=== PATIENT | female | born 1925 | race Caucasian/White ===

== ENCOUNTER 2016-12-28 18:34 | Inpatient (IN) | payer MEDICARE, BC ==
[~2016-12-28] VITALS: Ht 160 cm; Wt 86.0 kg
--- NOTE | 2017-01-01 16:46 | ER ---
ADMIT: 12/28/2016 RM/LOC: 502 [facility] MR#: [id number] [address] [address] [place] [address] Emergency Room Report SEX: F AGE: 89 : 1925 DATE: 12/28/2016 HISTORY OF PRESENT ILLNESS: The patient is an 89-year-old female, who presents to the emergency room after she sustained a fall at [facility]. She was trying to walk through the door in her house when she tripped and fell straight down on her knee. She is negative for loss of consciousness, but she is anticoagulated for AFib. She had right knee and hip pain, severity of pain 6/10. PAST MEDICAL HISTORY: Heart disease, left hip replacement [address] Rayo. She is AFib. IMMUNIZATIONS: Up-to-date. MEDICATIONS: Are as follows: 1. Aspirin. 2. Enalapril. 3. Metoprolol. 4. Warfarin. ALLERGIES: NO DRUG ALLERGIES. SOCIAL HISTORY: Lives at [facility]. PHYSICAL EXAMINATION: VITAL SIGNS: Blood pressure 161/82, with a heart rate of 65, respirations 11, temperature 98.6, O2 saturations 93%. GENERAL: She is mildly anxious. HEENT: On examination, she had no indication of trauma to the head or face. Eyes are PERRLA. ENT within normal limits. NECK: Supple. RESPIRATIONS: Chest nontender. ABDOMEN: Nontender. NEURO: Oriented x4. Motor and sensation intact. Mood and affect appropriate. SKIN: Good color and turgor. EXTREMITIES: Externally rotated right leg and shortened. LABORATORY DATA AND IMAGING: X-ray shows right femoral neck fracture read by Dr. Mitchell and verified by Radiology, Dr. Zurita. CBC; 10.6 white count. Chemistry; BUN is 32, glucose 117, creatinine is 1.9, GFR is 23. Her EKG ADMIT: 12/28/2016 RM/LOC: 502 [facility] MR#: [id number] [address] [address] [place] [address] Emergency Room Report SEX: F AGE: 89 : 1925 shows inferior Q-waves and incomplete left bundle-branch block compared to prior a similar read, has not changed since 2013. Dr. Gauthier was contacted at 2030 hours for orders and Dr. Rayo was contacted for consultation. EMERGENCY DEPARTMENT COURSE: She has received Zofran 4 mg ODT. She has a line IV. Given morphine 4 mg IM prior to her x-ray, which after she came back, she was in a lot of pain, so we gave her Dilaudid 0.5 mg IV to repeat every 30 minutes. We did have to put her on 2 L of oxygen as a result of the Dilaudid given. Her saturations went down to 85%-87%. She is more comfortable now, awaiting room placement. CLINICAL IMPRESSION: Right femoral neck fracture secondary to fall. ROLF Morales / Filiberto Mitchell MD / modl JOB #: [id number] CC: Rodolfo Gauthier MD, Attending Physician Rodolfo Gauthier MD, Family Physician
--- NOTE | 2017-01-02 19:22 | HP ---
ADMIT: 12/28/2016 RM/LOC: 502 [facility] MR#: [id number] [address] [address] [place] [address] History and Physical SEX: F AGE: 89 : 1925 DATE OF SERVICE: CHIEF COMPLAINT: Right hip pain. CLINICAL HISTORY: The patient is an 89-year-old white female, who presented to the emergency room on the evening of 12/28/2016, complaining of right hip pain. The patient fell at her daughter's home when she tripped going over the threshold of a door. The patient normally is a resident at [facility]. She tripped and fell, landing on her right hip, having immediate onset of pain in her hip. She was subsequently unable to bear weight and ambulate and for this reason, her family transported her to the emergency room where she was evaluated and x-ray showed an intertrochanteric fracture of her right hip. She had an obvious hip fracture with shortening and external rotation of her right lower extremity noted with severe pain with any movement of her right lower extremity. The patient is noted to have a history of previous left hip fracture in November of 2013 when she suffered a similar injury to her left hip when she fell while living in her own home in [place] at that time. The patient has been living at [facility] [place] since she recovered from that previous hip fracture in November 2013. She is admitted at this time with an acute right hip fracture with plans for orthopedic consultation. PAST MEDICAL HISTORY: Previous hospitalization, she was last hospitalized here on 11/22/2013, with a left hip fracture. She has had no other recent hospitalizations. Her medical illnesses are noted to include SA node dysfunction with paroxysmal atrial fibrillation, sinus bradycardia as a portion of her SA node dysfunction, hypertension, and aortic insufficiency/valvular heart disease. Do note that she is on long-standing Coumadin anticoagulation for her paroxysmal atrial fibrillation. PREVIOUS SURGERIES: Include open reduction and internal fixation of her left hip fracture. The patient had a bipolar prosthesis placed for her left hip fracture in November 2013. ALLERGIES: NO KNOWN ALLERGIES. CURRENT MEDICATIONS: Include: 1. Baby aspirin 81 mg daily. 2. Metoprolol 25 mg b.i.d. 3. Enalapril 10 mg b.i.d. 4. Coumadin 5 mg on Thursday, Thursday, , and Thursday and 2.5 mg on Thursday, Thursday, and Thursday. She is on no other medications. SOCIAL HISTORY: The patient lived in [place] until her fall in 2013. For the past 3 years, she has been living at [facility] [place]. She chose to remain in [place] because 2 of her daughters live here in [place] and are support system for her here in this area. The patient is a lifelong nonsmoker. She does not consume alcoholic beverages. She has been able to live in the independent living portion of [facility] [place] for the last 2 years. ADMIT: 12/28/2016 RM/LOC: 502 [facility] MR#: [id number] [address] [place] [id number] [place] [address] History and Physical SEX: F AGE: 89 : 1925 FAMILY HISTORY: Negative with no history of significant family-related health conditions. REVIEW OF SYSTEMS: CONSTITUTIONAL: She has been feeling well. No recent acute illnesses. No fever. No chills. No weight loss. No night sweats. HEENT: No new eye, ear, nose, or throat complaints. Does have some mild hearing impairment. PULMONARY: No shortness of breath. No cough. No chest congestion. CARDIAC: No recent chest pain, palpitations, or tachycardia. No lightheadedness, no dizziness, no syncope, no orthopnea or PND. GASTROINTESTINAL: No nausea, no vomiting. No diarrhea. No change in bowel habitus. No blood in the stools. GENITOURINARY: No voiding symptoms. No flank pain or dysuria. No blood in the urine. MUSCULOSKELETAL: Some mild generalized arthritic discomfort. Left hip is done well since her previous left hip fracture. NEUROLOGIC: No focal symptoms. Cognitively she is well preserved. No history of strokes, seizures, TIAs, or unusual headaches. ENDOCRINE: No history of diabetes or thyroid problems. HEMATOLOGIC: No history of significant anemia or clotting disorders. She is on Coumadin anticoagulation. PHYSICAL EXAMINATION: VITAL SIGNS: Her temp is 97.1, pulse is 79, respirations are 16, blood pressure 152/59, and O2 saturation 98%, and current weight 189 pounds. GENERAL: The patient is a very pleasant 89-year-old female, who is in moderate distress due to her hip pain at this time, complaining of severe pain in her right hip. She is alert and oriented. HEENT: Reveals her ears to be clear. Pupils are equal reactive. Sclerae nonicteric. Conjunctivae noninflamed. Oral mucous membranes are moist. No oral lesions. Gag reflex is intact. NECK: Supple. Thyroid not enlarged. No cervical lymphadenopathy. No carotid bruits. LUNGS: At this time are noted to be clear. A little diminished in the bases. No wheezes or rales. HEART: Noted to have a regular rhythm at this time. She has a soft systolic murmur at the upper sternal border. No neck vein distention. No carotid bruits. ABDOMEN: Soft, nontender. No masses. No organomegaly. Bowel sounds normoactive. EXTREMITIES: The patient has marked pain with any movement of her right lower extremity. She has shortening and external rotation of the right leg. Marked pain in the right groin and over the right hip. Left lower extremity is unremarkable. She has a trace of pedal edema. No calf tenderness. INTEGUMENT: No rashes or worrisome skin lesions noted. NEUROLOGIC: No focal deficit. The patient unable to stand, unable to assess balance or gait at this time due to her severe hip pain, but I see no focal neurologic deficits. Cognitively she is well preserved. ADMIT: 12/28/2016 RM/LOC: 502 [facility] MR#: [id number] [address] [address] [place] [address] History and Physical SEX: F AGE: 89 : 1925 ASSESSMENT AT THE TIME OF ADMISSION: 1. Acute right femoral neck fracture/fracture of the right hip. Fall at her daughter's home on 12/28/2016. 2. Osteoporosis. 3. Valvular heart disease with aortic insufficiency. 4. SA node dysfunction with paroxysmal atrial fibrillation. 5. Hypertension. 6. Ongoing Coumadin anticoagulation. PLAN: Plan is to admit the patient. Pre-admission labs were reviewed. Do note that her white count is normal. Her creatinine is elevated at 1.9 suggesting some degree of age-related chronic kidney disease. Her EKG does show normal sinus rhythm with left bundle branch block and left anterior fascicular block, unchanged from previous EKGs. All preop lab, EKGs, and x-rays were reviewed. I see no medical contraindications to her planned orthopedic surgery. Dr. Rayo has been consulted and plans to take her to the OR later in the day of 12/29/2016. Rodolfo Gauthier MD/ edison JOB #: [id number] CC: Rodolfo Gauthier, Attending Physician Rodolfo Gauthier, Family Physician
--- NOTE | 2017-01-16 07:45 | OR ---
ADMIT: 12/28/2016 RM/LOC: 502 [facility] MR#: [id number] [address] [address] [place] [address] Operative/Delivery Room Report SEX: F AGE: 89 : 1925 SURGERY DATE: 12/29/2016 SURGEON: Jonathan Rayo MD PREOPERATIVE DIAGNOSES: 1. Right displaced femoral neck fracture. 2. Morbid obesity. POSTOPERATIVE DIAGNOSES: 1. Right displaced femoral neck fracture. 2. Morbid obesity. PROCEDURE: Right bipolar hemiarthroplasty. ELECTRONIC ASSEMBLY: ROLF Tan COMPLICATIONS: None. BLOOD LOSS: 200 mL. COMPONENTS: 1. A 5 basic Temple press-fit stem. 2. A 1.5 x 28 mm head. 3. A 46 mm bipolar component. DESCRIPTION OF THE PROCEDURE: The patient was taken to the operating room, received a general anesthetic, placed in lateral decubitus position. The right hip was prepped in standard fashion. A posterior was approach performed. Dissection was carried through the subcutaneous tissue. She is very obese. We carried it down to IT band, split the IT band into the gluteus eduar. At that point, we identified the piriformis tendon. We released the piriformis tendon and capsule and one capsular flap. We were then able to dislocate the hip. We freshened up the femoral neck fracture with an oscillating saw, removed the femoral head from the acetabulum, it measured 46 mm. At that point, we opened up the piriformis fossa with a reamer, reamed up to a size 2 to 3 then we sequentially broached up to a size 5. The 5 had actually had a very good press fit, and we elected to use a press-fit ADMIT: 12/28/2016 RM/LOC: 502 [facility] MR#: [id number] [address] [address] [place] [address] Operative/Delivery Room Report SEX: F AGE: 89 : 1925 prosthesis. We cleaned off the femoral neck with calcar party planner, reduced the hip with a 1.5 x 28 mm femoral head with a 46 mm bipolar component. At that point, we had good soft tissue tension, good leg length, no instability. We then dislocated the hip, removed all trial components, impacted the size 5 basic Temple stem down the femoral canal, impacted a +1.5 x 28 mm head, put on a 46 mm bipolar component, reduced the hip, it was again found to be stable. We irrigated out the wounds thoroughly, repaired the deep capsular tissue with #5 Tycron suture, closed an interrupted 0 Vicryl, closed the tensor fascia with 1 #5 suture followed by interrupted and running 0 Vicryl suture, closed the deep fat with 0 Vicryl and a 2-0 Vicryl, closed subcu with a 2-0 Vicryl, placed ellen in the skin, applied sterile dressings. She was taken to recovery room in stable condition with no complications. Jonathan Rayo MD/ edison JOB #: [id number] CC: Rodolfo Gauthier, Attending Physician Rodolfo Gauthier, Family Physician
--- NOTE | 2017-01-16 07:45 | CO ---
ADMIT: 12/28/2016 RM/LOC: 502 [facility] MR#: [id number] [address] [address] [place] [address] Consultation Report SEX: F AGE: 89 : 1925 Corrected: 12/30/2016 0652 njv DATE OF CONSULTATION: 12/29/2016 ATTENDING PHYSICIAN: Rodolfo Gauthier CONSULTING PHYSICIAN: Jonathan Rayo MD CHIEF COMPLAINT: Right hip pain. HISTORY OF PRESENT ILLNESS: The patient was at her daughter's home yesterday. She was going down the steps into the garage accompanied by her daughter when she fell down on her right side from. Her daughter was there and witnessed and described that she had immediate pain and was unable to stand up. Her daughter then drove her to the ER where she was evaluated for right hip and knee pain, and subsequently found a right femoral neck fracture. ALLERGIES: NO KNOWN DRUG ALLERGIES. MEDICATIONS: Please see the nurse's MAR. PAST MEDICAL HISTORY: Significant for atrial fibrillation and hypertension. SOCIAL HISTORY: The patient lives at [facility] by herself. PAST SURGICAL HISTORY: Significant for a left bipolar hemiarthroplasty, hysterectomy, and cholecystectomy. FAMILY HISTORY: Non-pertinent. REVIEW OF SYSTEMS: A comprehensive review of systems was reviewed and negative except what is noted in HPI. PHYSICAL EXAMINATION: GENERAL: This is a well-appearing elderly female, who is lying slightly uncomfortably on the hospital bed. MUSCULOSKELETAL: Right lower extremity shows no signs of bruising or skin abnormalities. She does have severe pain to palpation of the right hip and groin region all the way down to her mid thigh, however, there is no pain to palpation in her right knee or lower leg. She has shortened and externally rotated right lower extremity, normal sensation and movement of her toes, however, range of motion of her right lower extremity was not able to be assessed due to extreme pain with movement. NEUROVASCULAR: Status is intact. IMAGING: X-ray show a Garden type 3 right femoral neck fracture. ASSESSMENT: Right femoral neck fracture. ADMIT: 12/28/2016 RM/LOC: 502 [facility] MR#: [id number] [address] [address] [place] [address] Consultation Report SEX: F AGE: 89 : 1925 PLAN: At this point, I discussed the risks, benefits, and alternatives to a right bipolar hemiarthroplasty and the patient elected to proceed. She is taking warfarin for atrial fibrillation, which she took yesterday, but did not take today, her INR this morning was 1.7. I discussed with the patient. Her daughter said that the family practice doctor was planning on giving something to decrease the INR. If this is the case, we will recheck an INR and if it is decreased, Dr. Rayo will perform a right bipolar hemiarthroplasty this afternoon at around 1600 hours. The patient's daughter signed the consent form. The right hip was marked, and questions and concerns were answered appropriately. ROLF Monterroso / Jonathan Rayo MD / edison JOB #: [id number] CC: Rodolfo Gauthier, Attending Physician Rodolfo Gauthier, Family Physician Corrected: 12/30/2016 0652 njmine
--- NOTE | 2017-02-11 13:37 | DS ---
ADMIT: 12/28/2016 RM/LOC: 502 [facility] MR#: [id number] [address] [address] [place] [address] General Discharge Summary SEX: F AGE: 89 : 1925 ADMISSION DATE: 12/28/2016 DISCHARGE DATE: 01/01/2017 ADMITTING DIAGNOSIS: As per history and physical. FINAL DIAGNOSES: 1. Fracture of the right hip status post transfemoral nailing. 2. Sick sinus syndrome. 3. Paroxysmal atrial fibrillation. 4. Left bundle branch. 5. Fall prior to admission with resultant hip fracture. 6. Age-related osteoporosis. 7. Chronic kidney disease, stage 2. 8. Postoperative anemia. 9. Long-term Coumadin anticoagulation. 10.Chronic cerebrovascular disease. PROCEDURES: The patient had a bipolar hip prosthesis on 12/29/[address] Rayo. She was also given fresh frozen plasma for reversal of her anticoagulation on 12/29/2016. CLINICAL HISTORY: Mrs. Haney is a very pleasant 89-year-old, white female, who was admitted on the evening of 12/28/2016 after being seen in the ER complaining of right hip pain. The patient fell on the evening of 12/28/2016, injuring her right hip. X-rays in the ER showed a right femoral neck fracture. The patient has a history of prior left hip fracture in November of 2013. She is admitted at this time for orthopedic consultation. For further details, please see dictated history and physical as well as dictated Orthopedic consultation. LABORATORY AND X-RAY SUMMARY FROM THIS ADMISSION: Her initial CBC showed a white count of 10,600, hemoglobin 12, and hematocrit 37.5. On the morning of 12/29/2016, her hemoglobin was 11.2. Postoperatively, her hemoglobin trended down, and at discharge, hemoglobin was 7.4 and hematocrit 23.5. She had a significant postoperative anemia due to blood loss. Her protime on admission was 20.1 with an INR of 1.8. Protimes were monitored daily. At discharge, her protime was 15.5, INR 1.47. She was placed back on Coumadin postoperatively. Urinalysis on admission was clear. Chemistry studies were monitored daily. Her sodium on admission was 140 and potassium 4.6. On admission; BUN was 32 with a creatinine of 1.9. At discharge, her sodium was 139, potassium 4.5, BUN was 23, and creatinine was 1.4. Urine culture done during this admission showed no growth. She was given 1 unit of fresh frozen plasma on 12/29/2016 for reversal of her anticoagulation. Blood type is noted to be O positive with negative antibody screen. X-ray of her hip done in the ER, which showed a right femoral neck fracture. Chest x-ray in the ER showed some chronic changes, but no evidence of pneumonia or heart failure. Knee x- rays did show some degenerative changes of her right knee. Postoperatively, the patient had x-rays, which confirmed her bipolar hip prosthesis. Her EKG on admission showed sinus rhythm with first degree AV block with left bundle- ADMIT: 12/28/2016 RM/LOC: [address] [place] [address] MR#: [id number] [address] [place] [id number] [place] [address] General Discharge Summary SEX: F AGE: 89 : 1925 branch block and left anterior fascicular block. Serial EKG showed no change. HOSPITAL COURSE: The patient was admitted. Orthopedic consult was obtained. Because of her Coumadin anticoagulation, we had reversed her anticoagulation. The patient was taken to the OR late on the afternoon of 12/29/[address] Rayo performed a right bipolar hemiarthroplasty. Postoperatively, she actually did quite well. Other than for her postoperative anemia, she had no other significant complications during her hospital stay. Her Coumadin was resumed postoperatively she had no significant cardiopulmonary issues postoperatively and ultimately was dismissed to the IRU on 01/01/2017. At dismissal, she was continued on her usual medications, which include a baby aspirin 81 mg daily and Coumadin 5 mg daily. Because of her low blood pressure due to her anemia, her metoprolol and enalapril were held at the time of transfer. This will be monitored while she is at the IRU. She did have orders for a CBC and BMP as well as a protime to be done the day following discharge while she is at the IRU. She was dismissed on Levaquin for urinary tract infection as well. CONDITION AT DISCHARGE: Stable. PROGNOSIS: [place] to be somewhat guarded due to her advanced age, but was hopeful that she would make a good recovery with her stay at the IRU. The patient will be seen for followup by myself as well as Orthopedics while she is at the IRU. Dr. Brambila will manage her rehab at the IRU. Rodolfo Gauthier MD/ edison JOB #: [id number] CC: Rodolfo Gauthier MD, Attending Physician Rodolfo Gauthier MD, Family Physician
[2017-02-21] MEDS ORDERED: COUMADIN DPS3 MG PO (10:04)
[2017-02-21] MEDS ORDERED: ASPIRIN81 MG PO (10:04)
[2017-02-21] MEDS ORDERED: METOPROLOL TART25 MG PO (10:04)
[2017-02-21] MEDS ORDERED: SENOKOT-S TABL1 EACH PO (10:05)
[2017-02-21] MEDS ORDERED: COUMADIN DPS2 MG PO (10:05)
[2017-02-21] MEDS ORDERED: TRIMPEX DPS100 MG PO (10:05)
[2017-02-21] MEDS ORDERED: VITAMIN D1000 UNI1 PO (10:06)
[2017-02-21] MEDS ORDERED: MILK OF MAGNESI10 ML PO (10:06)
[2017-02-21] MEDS ORDERED: MAALOX DPS30 ML PO (10:06)
[2017-02-21] MEDS ORDERED: MIRALAX PACKET17 GM PO (10:06)
[2017-02-21] MEDS ORDERED: NORCO 5-325 TA1 EACH PO (10:06)
[2017-02-21] MEDS ORDERED: SENOKOT DPS8.6 MG PO (10:07)
[2017-02-21] MEDS ORDERED: TUMS200 MG PO (10:07)
[2017-02-21] MEDS ORDERED: TYLENOL DPS325 MG PO (10:07)
== END 2017-01-01 15:00 | disposition short-term general hospital (02) | DRG 470 ==
LOC: ER 18:34 → 5MS 20:51
PROVIDERS: ADMIT Family Medicine
PROC: 0SRR0JA Replacement of Right Hip Joint, Femoral Surface with Synthetic Substitute, Uncemented, Open Approach (ICD-10-PCS; principal; 2016-12-29)
PROC: 30233K1 Transfusion of Nonautologous Frozen Plasma into Peripheral Vein, Percutaneous Approach (ICD-10-PCS; 2016-12-29)
DX: S72.001A Fracture of unspecified part of neck of right femur, initial encounter for closed fracture (principal); I49.5 Sick sinus syndrome; I48.0 Paroxysmal atrial fibrillation; E66.01 Morbid (severe) obesity due to excess calories; I44.7 Left bundle-branch block, unspecified; W19.XXXA Unspecified fall, initial encounter; M81.0 Age-related osteoporosis without current pathological fracture; I44.4 Left anterior fascicular block; I12.9 Hypertensive chronic kidney disease with stage 1 through stage 4 chronic kidney disease, or unspecified chronic kidney disease; N18.2 Chronic kidney disease, stage 2 (mild); D64.9 Anemia, unspecified; Z79.01 Long term (current) use of anticoagulants; Z79.82 Long term (current) use of aspirin; Z68.33 Body mass index [BMI] 33.0-33.9, adult; Z96.642 Presence of left artificial hip joint